=== PATIENT | male | born 1945 | race Caucasian/White ===

== ENCOUNTER 2022-09-13 19:15 | Emergency (ER) | payer MEDICARE ==
[~2022-09-13] VITALS: Ht 170.2 cm; Wt 70.4 kg
[2022-09-13 19:16] VITALS: BP 146/83; TEMP 98.5; O2SAT 99
[2022-09-13] MEDS ORDERED: CEPHALEXIN 500 MG CAP PO ONE (19:50)
== END 2022-09-13 20:06 | disposition home or self-care (01) ==
LOC: M ED 19:15
DX: L03.113 Cellulitis of right upper limb (principal)